=== PATIENT | male | born 1990 | race Caucasian/White ===

== ENCOUNTER 2017-02-15 14:19 | Emergency (ER) | payer OTHER ==
[~2017-02-15] VITALS: Ht 175.3 cm; Wt 65.0 kg
[~2017-02-15 14:19] MED LIST: ALBU17I INH; AZIT250T74 PO; DIPH2%T PO; PRED20 PO; Z.0.NO CURRENT MEDS
[2017-02-15 14:35] VITALS: BP 125/61; PULSE 89; RESP 16; TEMP 99.2; O2SAT 99
--- NOTE | 2017-02-15 16:18 | PD ---
HPI . Left testicle pain Chief Complaint: Musculoskeletal Complaint Time Seen by Provider: 15:01 Travel History International Travel<30 days: No Contact w/Intl Traveler<30days: No Traveled to known affect area: No History of Present Illness HPI 26-year-old male patient presents to the emergency department for evaluation of left testicle pain that radiates up into his abdomen. The pain started spontaneously this afternoon when he attempted to lift a dresser. Patient states he lifted the dresser and twisted and immediately felt the pain. Patient denies any major medical history. Patient is not on any current medications. The only allergy is cat dander. [facility] Past Medical History Asthma: Yes Diminished Hearing: No Immunizations Current: Yes Tetanus Vaccination: Unknown Influenza Vaccination: No ?: Not Social History Alcohol Use: No Tobacco Use: Yes (07/11 PPD) Substance Use: No Allergies-Medications (Allergen,Severity, Reaction): Coded Allergies: cat dander (Unverified Allergy, Mild, 02/15/17) Reported Meds & Prescriptions Reported Meds & Active Scripts Active Review of Systems Except as stated in HPI: all other systems reviewed are Neg Physical Exam Narrative GENERAL: Well-nourished, well-developed 26-year-old male patient in no acute distress. SKIN: Focused skin assessment warm/dry. HEAD: Normocephalic. Atraumatic EYES: No scleral icterus. No injection or drainage. NECK: Supple, trachea midline. No JVD or lymphadenopathy. CARDIOVASCULAR: Regular rate and rhythm without murmurs, gallops, or rubs. RESPIRATORY: Breath sounds equal bilaterally. No accessory muscle use. GENITOURINARY: Circumcised. Testes descended bilaterally without evidence of rotation. No lesions or erythema. No urethral discharge. Cremaster reflex intact. Negative Prehn's sign. GASTROINTESTINAL: Abdomen soft, non-tender, nondistended. MUSCULOSKELETAL: No cyanosis, or edema. BACK: Nontender without obvious deformity. No CVA tenderness. Data Data Last Documented VS Vital Signs Date Time Temp Pulse Resp B/P (MAP) Pulse Ox O2 Delivery O2 Flow Rate FiO2 02/15/17 14:35 99.2 89 16 125/61 (82) 99 Orders Orders Us Testicles W Doppler (02/15/17 ) [facility] [place] Medical Decision Making Medical Screen Exam Complete: Yes Emergency Medical Condition: Yes Differential Diagnosis Differential diagnoses include testicular torsion, epididymitis, orchitis, muscle strain Narrative Course A 26-year-old male patient presents emergency department for evaluation of sudden onset testicular pain is referred when he was lifting a dresser. Patient has no major medical history. Patient is on any current medication. Patient states that testicular pain shot up into his abdomen. Ultrasound of his testicles ordered and pending. Ultrasound of the testicles shows bilateral varicoceles and a trace hydrocele on the right otherwise negative. Based on patient's symptoms, clinical presentation, radiological results, vital sign review and physical exam it is not necessary to admit the patient to the hospital or keep the patient in the emergency department for further evaluation. Patient will be given IM injection of Toradol and discharged home with instructions to return the emergency Department with any worsening condition. Diagnosis Primary Impression: Left testicular pain Patient Instructions: General Instructions, Testicle Pain (ED) Additional Instructions: Please return to emergency department if your symptoms return or worsen. Follow up with your primary care provider. No heavy lifting until cleared by primary care. May take [id number] Motrin as needed for pain Disposition: 01 DISCHARGE HOME Condition: Stable Cynthia Ramos Feb 15, 2017 16:18
--- NOTE | 2017-02-15 16:53 | RADRPT ---
EXAM DATE/TIME: 02/15/2017 16:08 [place] COMPARISON: No previous studies available for comparison. INDICATIONS : Testicular pain. MEDICAL HISTORY : Asthma. SURGICAL HISTORY : Right hand surgery. ENCOUNTER: Initial ACUITY: 1 day PAIN SCORE: 5/10 LOCATION: Bilateral scrotum. MEASUREMENTS: RIGHT TESTICLE: 5.2 x 3.2 x 2.0cm LEFT TESTICLE: 4.9 x 3.0 x 2.2cm FINDINGS: RIGHT TESTICLE: Homogeneous echotexture without intra or extratesticular mass. Blood flow is symmetric and within no rmal limits. Small varicocele, trace hydrocele. Epididymis is within normal limits. LEFT TESTICLE: Homogeneous echotexture without intra or extratesticular mass. Blood flow is symmetric and within no rmal limits. Small varicocele varicocele. Epididymis is within normal limits. SCROTUM: Within normal limits. CONCLUSION: Small bilateral varicoceles. Trace hydrocele on the right. Otherwise negative. Vin Douglas MD FACR on February 15, 2017 at 16:51 Board Certified Radiologist. This report was verified electronically.
[2017-02-15] MEDS ORDERED: KETOROLAC TROMETHAMINE 60 MG/2 ML (IM) VIAL IM ONE (17:15)
== END 2017-02-15 17:22 | disposition home or self-care (01) ==
LOC: PHEFT 14:19
DX: N50.812 Left testicular pain (principal)
CPT/HCPCS: 76870; 93975; 96372; 99284; J1885